=== PATIENT | female | born 1990 | race Caucasian/White ===

== ENCOUNTER 2021-08-17 11:04 | Emergency (ER) | payer OTHER ==
[~2021-08-17] VITALS: Ht 170.2 cm; Wt 102.1 kg
--- NOTE | 2021-08-17 11:21 | NUR ---
RECEIVED PT 31 YRS FEMALE Accompany by mother c/o pain and swallen on lt foot fell down and twisted her lt ankle no difformity wigling here toes
[2021-08-17] MEDS ORDERED: KETOROLAC TROMETHAMINE INJ 30 MG/ML VIAL ONE ×2 (11:27→11:28)
[2021-08-17] MEDS ORDERED: KETOROLAC TROMETHAMINE INJ 30 MG/ML VIAL IM ONE (11:30)
--- NOTE | 2021-08-17 11:55 | NUR ---
X- RAY DONE ON LT FOOT
--- NOTE | 2021-08-17 12:30 | NUR ---
[place] BANDAGE APPLED ON LT FOOT
[2021-08-17] MEDS ORDERED: IBUP-1957 PO (12:41)
[2021-08-17] MEDS ORDERED: ACET-2605 PO (12:41)
[2021-08-17 12:48] VITALS: BP 138/75
--- NOTE | 2021-08-17 12:50 | NUR ---
D/C INSTRACTION GIVEN TO PT FULLY AND VERBLIZED UNDERSTOOD WIGLING HERE TOES
== END 2021-08-17 13:00 | disposition home or self-care (01) ==
LOC: ER 11:25
DX: S93.402A Sprain of unspecified ligament of left ankle, initial encounter (principal); W22.8XXA Striking against or struck by other objects, initial encounter; Y93.53 Activity, golf; Y92.39 Other specified sports and athletic area as the place of occurrence of the external cause; Y99.8 Other external cause status
CPT/HCPCS: 73610; 96372; 99283; J1885